=== PATIENT | female | born 1970 | race Two or more races ===

== ENCOUNTER 2025-02-13 21:17 | Emergency (ER) | payer MEDICAID, SELFPAY ==
[2025-02-13 21:19] VITALS: BMI 31.8
[2025-02-13 21:36] VITALS: BP 131/76; PULSE 100; RESP 18; TEMP 37.1; O2SAT 98
--- NOTE | 2025-02-13 22:57 | XR_ITS ---
Examination: PA lateral chest 2 views TECHNIQUE: Upright PA lateral chest 2 views Date and time: February 13, 2025 1109 hours INDICATIONS: Patient fell yesterday with injury to the chest, chest pain FINDINGS: Normal heart size No pneumothorax Clavicles, ribs, thoracic vertebral bodies appear intact. IMPRESSION: No pneumothorax pulmonary contusion or hemothorax
--- NOTE | 2025-02-13 22:57 | EKG_ITS ---
[facility] Test Date: 2025-02-13 Pat Name: JANNA HARRISON Department: Room: - Gender: Female Paunch Trimmer: : 1970 Requested By: Bethany Montana Order Number: [id number] Reading MD: Bethany Montana Measurements Intervals [place] Rate: 108 P: 39 OH: 136 QRS: 51 QRSD: 84 T: 66 QT: 320 QTc: 430 Interpretive Statements SINUS TACHYCARDIA POSSIBLE LEFT ATRIAL ENLARGEMENT [-0.1mV P-WAVE IN V1/V2] ABNORMAL RHYTHM ECG No previous ECG available for comparison /store/S0/[id number]/ecg/[id number].pdf
--- NOTE | 2025-02-13 22:57 | XR_ITS ---
Examination: Shoulder,right, 3 views Technique: Shoulder AP internal rotation, AP external rotation, Y view shoulder, 3 views Exam date and time :February 13, 2025 1107 hours INDICATIONS: Patient fell yesterday with into the shoulder, shoulder pain. FINDINGS: No shoulder fracture or dislocations Small oval bone density adjacent to the acromion No AC joint separation IMPRESSION: No acute shoulder fracture or dislocation
--- NOTE | 2025-02-13 22:57 | XR_ITS ---
Examination: Knee, left , 3 views Technique: Knee AP, lateral, oblique 3 views Date and time of exam: February 13, 2025 1110 hours INDICATIONS: Patient fell yesterday with injury to the knee, knee pain. FINDINGS: No fracture or dislocation. No foreign body IMPRESSION: No fracture or dislocation
[2025-02-13 23:38] LABS: Basophils # (Auto) 0.1 Thou/mm3 (0.0-0.2); Basophils % (Auto) 1 % (0-2.5); Eosinophils # (Auto) 0.4 Thou/mm3 (0.0-0.5); Eosinophils % (Auto) 2 % (0-10); Hematocrit 26.0 % (36.0-46.0); Immature Granulocytes Auto 0.06 Thou/mm3 (0.00-0.00); Lymphocytes # (Auto) 3.3 Thou/mm3 (1.0-4.8); Lymphocytes % (Auto) 22 % (10-50); Mean Corpuscular HGB Conc 25.0 g/dl (31.0-37.0); Mean Corpuscular Hemoglobin 13.9 pg (25.0-35.0); Mean Corpuscular Volume 56 fL (80-100); Monocytes # (Auto) 1.4 Thou/mm3 (0.0-0.8); Monocytes % (Auto) 9 % (0-12); Neutrophils # (Auto) 10.2 Thou/mm3 (1.8-7.7); Neutrophils % (Auto) 66 % (37-80); Nucleated Red Blood Cell # 0.04 Thou/mm3 (0.00-0.00); Nucleated Red Blood Cell % 0 /100 WBC (0); Platelet Count 455 Thou/mm3 (140-440); RDW Standard Deviation 46.8 fL (36.4-46.3); Red Blood Count 4.67 Miln/mm3 (4.00-5.20); White Blood Count 15.5 Thou/mm3 (3.6-11.0)
[2025-02-13 23:52] LABS: Alanine Aminotransferase 8 U/L (10-49); Albumin, Serum 4.7 gm/dL (3.5-5.0); Albumin/Globulin Ratio 1.4 (1.2-2.2); Alkaline Phosphatase 134 U/L (46-116); Anion Gap 8 (7-16); Aspartate Amino Transferase < 10 U/L (0-34); BUN/Creatinine Ratio 18 Ratio (12-20); Bilirubin,Total 0.4 mg/dL (0.3-1.2); Blood Urea Nitrogen 16 mg/dL (9-23); Calcium 9.6 mg/dL (8.3-10.6); Calcium (Corrected) 9.6 mg/dL (8.5-10.1); Carbon Dioxide 25.8 mMol/L (20.0-31.0); Chloride 106 mMol/L (98-107); Creatinine (Component) 0.9 mg/dL (0.6-1.3); Estimated Creatinine Clearance 73.1 mL/min (>60); Globulin 3.3 gm/dL (2.3-3.5); Glucose 149 mg/dL (74-106); Osmolality,Calculated 283 (275-295); Potassium 3.7 mMol/L (3.4-5.1); Sodium 140 mMol/L (136-145); Total Protein 8.0 gm/dL (5.7-8.2); eGFR > 60 See Note
[2025-02-14] VITALS (14 sets, daily range): BP systolic 109–132; BP diastolic 50–86; PULSE 63–100; RESP 16–20; TEMP 36.6–37.1; O2SAT 97–100
[2025-02-14 00:05] LABS: Hemoglobin 6.5 g/dL (12.0-16.0)
[2025-02-14 00:09] LABS: Path Review Blood Smear Sent to Pathologist
[2025-02-14 00:26] LABS: Collection Type, Urine Clean Catch; RBC,Urine 0 /hpf (0-3)
[2025-02-14 00:39] LABS: Amphetamine/Methamp Scrn,U Negative (Negative); Barbiturate Screen,Urine Negative (Negative); Benzodiazepines Screen,Urine Negative (Negative); Benzoylecgonine Screen, Ur Negative (Negative); Fentanyl Screen,Urine Negative (Negative); Opiate Screen,Urine Negative (Negative); THC Screen,Urine Negative (Negative)
[2025-02-14 00:45] LABS: INR 0.9 (0.9-1.3); Partial Thromboplastin Time 23.9 Seconds (22.0-36.0); Prothrombin Time 10.4 Seconds (9.0-12.2)
[2025-02-14 02:45] LABS: HCG Qualitative,Urine Negative
[2025-02-14 02:46] LABS: Amorphous Crystals,Urine Present (Absent); Bilirubin,Urine Negative (Negative); Blood,Urine Negative (Negative); Clarity,Urine Turbid (Clear/Hazy); Color,Urine Orange (Lt Yel-Yel); Culture Indicated,Urine Not Indicated; Glucose, Urine Negative (Negative); Ketones,Urine Negative (Negative); Leukocyte Esterase,Urine Positive (Negative); Nitrite,Urine Negative (Negative); PH,Urine 5.5 (5.0-7.0); Protein,Urine Trace (Neg - Trace); Specific Gravity,Urine 1.034 (1.001-1.035); Squamous Epithelial Cell,Urine 3 /hpf (0-5); Urobilinogen,Urine 2.0 mg/dL (0.0-1.0); WBC,Urine 1 /hpf (0-5)
[2025-02-14] MEDS: ACETAMINOPHEN 325 MG TABLET 650 MG PO (03:57)
--- NOTE | 2025-02-14 05:45 | EDNOTE_ITS ---
<Statement entered by Sugar Ross MD - 02/14/25 17:24> As co-signing physician, I was present and available for consult prn. I concur with the plan and care as documented by the midlevel provider. ED General RME/HPI General Chief complaint: Fall Stated complaint: FALL, CHEST, RIGHT ARM, AND LEFT THUMB PAIN Time Seen by Provider: 02/13/25 21:43 Arrival date/time: 02/13/25 21:17 RME / HPI RME / HPI narrative: 53-year-old female presents to the ED with complaint of injury to her right shoulder, right anterior chest wall and left knee secondary to a syncopal episode she experienced yesterday. She states she was walking and fell forward striking her forehead, right shoulder and chest as well as left knee. She states she has a history of low iron. She has never had an iron infusion but states she has had a blood transfusion previously. She denies any recent illness with fever, chills, cough, upper respiratory complaints. She does states she has heavy menstrual periods where she fully soaks a tampon and maxi pad frequently. She also states all of her sisters have low iron levels as well. Related Data Previous Rx's ?Medication ?Instructions ?Recorded ascorbic acid (vitamin C) 500 mg 500 mg PO QDAY #30 ta bs 02/14/25 tablet,extended release (Vitamin C ER) ferrous sulfate 325 mg (65 mg 325 mg PO TID #30 tabs 0 02/14/25 iron) tablet Allergies Allergy/AdvReac Type Severity Reaction Status Date / Time No Known Allergies Allergy Verified 02/13/25 21:19 Review of Systems Review of Systems Systems Reviewed: All systems reviewed, normal except as documented Past Medical History Past Medical History CARDIAC: Negative Congestive Heart Failure RESPIRATORY: Negative Chronic Obstructive Pulmonary Disease (COPD) GENITOURINARY: Negative Renal Disease ENDOCRINE: Negative Diabetes Mellitus Type 1 or Diabetes Mellitus Type 2 HEMATOLOGIC: Positive Anemia OTHER HISTORY: Positive Blood Transfusions Social History SMOKING STATUS: Current some day smoker ED Exam Narrative Physical exam: A&O, afebrile and non-toxic appearing 54-year-old female, no acute distress. Pupils are PERRL, EOMs intact. Cranial nerves II through XII grossly intact. 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 Lung sounds are clear, RRR, Abdomen is soft, nontender, and non-distended. Right distal clavicle, AC joint and GH joint tenderness with decreased range of motion with inversion, eversion, abduction and adduction of the right arm. Left anterior knee tenderness. No swelling or ecchymosis is noted. CMS intact to all 4 extremities. Moves all other extremities well. Course Course Course Narrative: CBC reveals an elevated white count of 15.5, significantly low hemoglobin of 6.5 and hematocrit of 26.0. MCV is low at 56, MCH is low at 13.9, MCHC is low at 25.0, platelets are elevated at 455. Coagulation studies are normal. Blood bank tests reveal O+ blood with negative antibody screen. CMP reveals normal electrolytes with the exception of an elevated glucose of 149. Renal function is normal. Alk phos is mildly elevated at 134 otherwise normal LFTs. Urinalysis reveals turbid orange urine with a specific gravity of 1.034 with trace protein, 2.0 urobilinogen, urine hCG is negative. Urine drug screen is negative. 2 units of PRBCs was ordered and transfusion is currently in process. Right shoulder x-ray reveals no acute fracture or dislocation. Left knee x-ray reveals no fracture or dislocation. XR chest reveals no acute process. Quality Measures none Orders Category Date Time Status Camp Guard STAT Care 02/14/25 02:26 Active EKG (ED ONLY) *Do not use* NOW Care 02/13/25 22:58 Completed Insert IV STAT Care 02/14/25 02:26 Active Transfuse,blood/blood products ONCE Care 02/14/25 02:26 Active EKG (ED Only) Stat Exams 02/13/25 22:57 Draft XR chest 2V Stat Exams 02/13/25 22:57 Completed XR knee LT 3V Stat Exams 02/13/25 22:57 Completed XR shoulder RT min 2V Stat Exams 02/13/25 22:57 Completed CBC Stat Lab 02/13/25 23:22 Completed CMP [Comprehensive Metabolic Panel] Stat Lab 02/13/25 23:22 Completed Drug Screen,Urine Stat Lab 02/14/25 00:13 Completed HCG Qualitative,Urine Stat Lab 02/14/25 00:13 Completed PT [Prothrombin Time with INR] Stat Lab 02/14/25 00:00 Completed PTT [Partial Thromboplastin Time] Stat Lab 02/14/25 00:00 Completed Path Review Blood Smear Stat Lab 02/13/25 23:22 Completed Type and Screen Stat Lab 02/14/25 00:44 Results Urinalysis, C/S if Indicated Stat Lab 02/14/25 00:13 Completed prbc [Red Blood Cells] Stat Lab 02/14/25 00:44 Results Acetaminophen Tab [Tylenol Tab] Med 02/14/25 02:26 Discontinued 650 mg PO X1 ONE DiphenhydrAMINE [Benadryl] Med 02/14/25 02:26 Discontinued 25 mg PO X1 ONE Vital Signs Vital signs: Vital Signs Temperature 98.7 F 02/13/25 21:36 Pulse Rate 100 02/13/25 21:36 Respiratory Rate 18 02/13/25 21:36 Blood Pressure 131/76 H 02/13/25 21:36 Pulse Oximetry (%) 98 02/13/25 21:36 Oxygen Delivery Method Room Air 02/13/25 21:36 Discharge Plan Plan Patient Disposition: HOME (Self Care) Discharge Disposition comment: Stable and improved Prescriptions/Referrals Prescriptions/Med Rec: New ferrous sulfate 325 mg (65 mg iron) tablet 325 mg PO TID Qty: 30 0RF ascorbic acid (vitamin C) [Vitamin C] 500 mg tablet extended release 500 mg PO QDAY Qty: 30 0RF Referrals: No Primary/Family,Physician [Primary Care Provider] - In 1 week Problem List Clinical Impression: Iron (Fe) deficiency anemia, Reactive thrombocytosis, Transfusion of blood during current hospitalisation, Syncope with normal neurologic examination, Contusion of right shoulder, Contusion of anterior chest wall Patient/Caregiver Discharge Instructions Education Materials: Iron Supplements, ED Anemia, Iron-Deficiency (Adult), ED Chest Wall Contusion, ED Dizziness or Syncope ..., ED Shoulder Contusion Additional Instructions: Take the iron tablets and vitamin C as prescribed. Follow-up with your primary care physician in the next 24 to 48 hours for referral to a ammonia box operator. You will likely need iron infusions. Return to the ER for any new or worsening symptoms. Print Language: Martiniquais Stand Alone Forms: Crystal Award Info., Patient Portal Info Letter PA/FRONT OF HOUSE MANAGER Supervising Physician PA/FRONT OF HOUSE MANAGER Supervising Physician: Dr. Vandana ROBISON Narrative MDM hospital course: Symptoms, exam and diagnostic studies are consistent with: Microcytic, hypochromic severe anemia with a hemoglobin of 6.5 with reactive thrombocytosis, suggestive of iron deficiency anemia. Patient was given 2 units of packed red blood cells. Clinical Information Provided by patient Medical Records Reviewed None Meds/Rx Considered, not Ordered None Describe details: N/A Labs/Rad/Tests considered, not Ordered None Describe details: N/A Chronic Illness/Social Conditions which may negatively complicate care or outcome(s)-explain: None or not applicable Add or document further as needed: N/A EKG EKG Interpretation narrative: EKG reveals sinus tachycardia at 108 with no STEMI noted. Lab Interpretation Labs: interpreted by ks Lab(s) interpretation(s): As noted above Imaging Imaging interpretation: see narrative above Radiology reports / interpretation(s): As noted above Medication Administration(s) Medication Administration History Discontinued Medications Acetaminophen (Acetaminophen 325 Mg Tablet) 650 mg PO X1 ONE Stop: 02/14/25 02:27 Last Admin: 02/14/25 03:57 Dose: 650 mg Documented By: CCT Comments: prior blood transfusion Diphenhydramine HCl (Diphenhydramine 25 Mg Capsule) 25 mg PO X1 ONE Stop: 02/14/25 02:27 Last Admin: 02/14/25 03:57 Dose: 25 mg Documented By: CCT As noted above Diagnosis Differential diagnosis: Syncope, vertigo, cardiac dysrhythmia, anemia Most likely dx, and/or detailed dx discussion: Syncope secondary to severe anemia with hemoglobin of 6.5 Dispositon Disposition: Discharge Home Disposition comments: Patient is stable for discharge
--- NOTE | 2025-02-14 07:15 | PC.NURSE ---
Received report from Etienne GUNTER and assumed care of patient. Patient sleeping in bed with no signs of distress and no complaints at this time.
== END 2025-02-14 10:38 | disposition home or self-care (01) ==
PROVIDERS: Physician Assistant; Emergency Provider Emergency Medicine
DX: D50.9 Iron deficiency anemia, unspecified (principal); S40.011A Contusion of right shoulder, initial encounter; D75.838 Other thrombocytosis; R55 Syncope and collapse; R00.0 Tachycardia, unspecified; S89.92XA Unspecified injury of left lower leg, initial encounter; W18.30XA Fall on same level, unspecified, initial encounter
CPT/HCPCS: 36415; 36430; 71046; 73030; 73562; 80053; 80307; 81001; 81025; 85025; 85610; 85730; 86850; 86900; 86901; 86923; 93005; 99284; P9016; A9270

== ENCOUNTER 2025-06-13 12:31 | Emergency (ER) | payer MEDICAID, SELFPAY ==
[2025-06-13 12:31] VITALS: BMI 37.2
[2025-06-13 12:39] VITALS: BP 150/95; PULSE 102; RESP 18; TEMP 37.1; O2SAT 93
--- NOTE | 2025-06-13 12:45 | EDNOTE_ITS ---
<Statement entered by Sugar Ross MD - 06/13/25 17:15> As co-signing physician, I was present and available for consult prn. I concur with the plan and care as documented by the midlevel provider. ED SOB =RME/HPI General Chief Complaint: Shortness of Breath/Dyspnea Stated Complaint: difficulty breathing Time Seen by Provider: 06/13/25 12:38 Source: patient Arrival date/time: 06/13/25 12:31 54-year-old female with no known medical history presents to the emergency room with a chief complaint of shortness of breath and difficulty breathing x 2 days Mode of arrival: ambulatory Limitations: no limitations Related Data Previous Rx's ?Medication ?Instructions ?Recorded ascorbic acid (vitamin C) 500 mg 500 mg PO QDAY #30 ta bs 02/14/25 tablet,extended release (Vitamin C ER) ferrous sulfate 325 mg (65 mg 325 mg PO TID #30 tabs 0 02/14/25 iron) tablet azithromycin 250 mg tablet See Rx Instructions PO .COM PLEX #6 06/13/25 (Zithromax Z-Alfonso) tabs prednisone 20 mg tablet 40 mg (2 x 20 mg) PO QDAY 4 days 06/13/25 #8 tabs Allergies Allergy/AdvReac Type Severity Reaction Status Date / Time No Known Allergies Allergy Verified 06/13/25 12:33 Review of Systems Review of Systems Systems Reviewed: All systems reviewed, normal except as documented Constitutional Constitutional: Reports system reviewed and no additional complaints, except as documented, Denies fatigue, Denies fever(s), Denies headache(s) and Denies weakness Eyes Eyes: Reports system reviewed and no additional complaints, except as documented, Denies blurry vision and Denies change in vision ENT Ears, Nose, Mouth, and Throat: Reports system reviewed and no additional complaints, except as documented, Denies otalgia, Denies headache(s), Denies nasal congestion, Denies throat swelling and Denies vertigo Cardiovascular Cardiovascular: Reports system reviewed and no additional complaints, except as documented, Denies chest pain, Reports dyspnea and Denies dyspnea on exertion Respiratory Respiratory: Reports system reviewed and no additional complaints, except as documented, Denies chest congestion, Reports cough, Reports dyspnea, Denies dyspnea on exertion and Reports wheezing Gastrointestinal Gastrointestinal: Reports system reviewed and no additional complaints, except as documented, Denies abdominal pain, Denies cramping, Denies nausea and Denies vomiting Genitourinary Genitourinary: Reports system reviewed and no additional complaints, except as documented Musculoskeletal Musculoskeletal: Reports system reviewed and no additional complaints, except as documented and Denies back pain Integumentary/Breasts Skin/Breast: Reports system reviewed and no additional complaints, except as documented and Denies wounds Neurologic Neurologic: Reports system reviewed and no additional complaints, except as documented, Denies confusion, Denies headache(s), Denies lack of coordination, Denies vertigo and Denies weakness Psychiatric Psychiatric: Reports system reviewed and no additional complaints, except as documented, Denies anxiety, Denies confusion, Denies depression, Denies paranoia, Denies suicidal ideation and Denies tactile hallucinations Endocrine Endocrine: Reports system reviewed and no additional complaints, except as documented and Denies fatigue Hematologic/Lymphatic Hematologic/Lymphatic: Reports system reviewed and no additional complaints, except as documented and Denies lymphadenopathy Allergic/Immunologic Allergic/Immunologic: Reports system reviewed and no additional complaints, except as documented, Denies throat swelling, Denies urticaria and Reports wheezing Past Medical History Past Medical History CARDIAC: Negative Congestive Heart Failure RESPIRATORY: Negative Chronic Obstructive Pulmonary Disease (COPD) GENITOURINARY: Negative Renal Disease ENDOCRINE: Negative Diabetes Mellitus Type 1 or Diabetes Mellitus Type 2 HEMATOLOGIC: Positive Anemia OTHER HISTORY: Positive Blood Transfusions Social History SMOKING STATUS: Never smoker ED Exam General Limitations: Present no limitations General appearance: Present alert and in no apparent distress Head Head exam: Present atraumatic Eye Eye exam: Present normal appearance, PERRL and EOMI ENT ENT exam: Present normal exam, normal oropharynx and mucous membranes moist Neck Neck exam: Present normal inspection, full ROM and trachea midline Chest Chest inspection: Present normal inspection and symmetric chest wall rise Respiratory Respiratory exam: Present normal lung sounds bilaterally and wheezes; Absent respiratory distress, stridor, accessory muscle use or prolonged expiratory phase Expanded Respiratory Exam Location: Left: wheezes, Right: wheezes and Upper: wheezes Cardiovascular Cardiovascular exam: Present regular rate, normal rhythm, normal heart sounds, +S1 and +S2; Absent tachycardia Abdominal Exam Abdominal exam: Present soft and normal bowel sounds Extremities Exam Extremities exam: Present normal inspection and full ROM Back Exam Back exam: Present normal inspection and full ROM Neurological Exam Neurological exam: Present alert, oriented X3 and CN II-XII intact Psychiatric Psychiatric exam: Present normal affect and normal mood Skin Skin exam: Present warm, dry, intact and normal color Course Quality Measures none Orders Category Date Time Status XR chest 1V portable Stat Exams 06/13/25 12:45 Completed COVID-19 Antigen (In-House) Stat Lab 06/13/25 13:25 Completed Influenza A & B Rapid Panel Stat Lab 06/13/25 13:25 Completed Albuterol/Ipratr Rt Marii [Duoneb Rt Mairi] Med 06/13/25 12:45 Discontinued 3 ml INH X1 ONE Dexamethasone Inj [Decadron Inj] Med 06/13/25 12:45 Discontinued 10 mg PO X1 ONE Vital Signs Vital signs: Vital Signs Temperature 98.7 F 06/13/25 12:39 Pulse Rate 102 H 06/13/25 12:39 Respiratory Rate 18 06/13/25 12:39 Blood Pressure 150/95 H 06/13/25 12:39 Pulse Oximetry (%) 93 L 06/13/25 12:39 Oxygen Delivery Method Room Air 06/13/25 12:39 Shortness of Breath / Dyspnea MDM Narrative MDM Narrative:: 54-year-old female with no known medical history presents to the emergency room with a chief complaint of shortness of breath and difficulty breathing x 2 days Patient is hemodynamically stable and in no apparent distress Physical examination shows bilateral upper lobe wheezing. Patient has a history of asthma. Patient was given a breathing treatment and steroids with significant improvement to her symptoms Chest x-ray shows bronchitis Patient was discharged and educated to follow-up with primary care provider in the next 24 to 48 hours and return to the emergency room for any evidence of worsening signs or symptoms Patient data External records reviewed:: [facility] previous records Clinical information provided by:: patient Social determinants that could affect healthcare access:: none Patient has the following chronic illnesses:: No chronic illness How is presenting disease/condition affected by chronic disease/condition?: no chronic disease Evaluation data The following diagnostics were reviewed and interpreted by me:: lab results and radiology exam(s) Lab and/or radiology exams considered but not ordered:: Labs and radiology exams considered in order Interpretation Summary: Chest [id number]: Normal heart size No pneumonia or pulmonary edema Mild accentuation of bronchovascular markings at the lung bases IMPRESSION: Basilar bronchitis pattern Medications / Prescriptions Medications or Prescriptions considered but not ordered:: Medication given Medication administrations:: Medication Administration History Discontinued Medications Albuterol/Ipratropium (Albuterol/Ipratropium (Duoneb) Rt Marii 3 Ml Nebu) 3 ml INH X1 ONE Stop: 06/13/25 12:46 Last Admin: 06/13/25 13:13 Dose: 3 ml Documented By: FELISA Dexamethasone Sodium Phosphate (Dexamethasone Sod Phos Inj 10 Mg/Ml Vial) 10 mg PO X1 ONE Stop: 06/13/25 12:46 Last Admin: 06/13/25 12:57 Dose: 10 mg Documented By: MF Medication given Consultations Consultation(s) initiated? (list below): No Diagnosis Shortness of Breath Differential Diagnosis: congestive heart failure, community acquired pneumonia, asthma with exacerbation and other (Bronchitis) Most likely diagnosis given after review of the tests above:: Bronchitis Admission Indicated Admission indicated?: not indicated Admission Request Was there a request for admission?: No Disposition Plan Disposition Plan: Discharge Discharge Attestation Discharge Attestation: The patient and all family members were given an opportunity to ask questions and understood the discharge instructions. Discharge instructions specifically effects, indications for sooner follow up or return to the emergency department, and the expected course of current diagnosis. Patient condition: Stable Discharge Plan Plan Patient Disposition: HOME (Self Care) Discharge Disposition comment: Stable Prescriptions/Referrals Prescriptions/Med Rec: New azithromycin [Zithromax Z-Alfonso] 250 mg tablet See Rx Instructions .ROUTE .COMPLEX Qty: 6 0RF Rx Instructions: For 250 mg dose pack: take 500 mg today (day 1), then 250 mg for 4 days (days 2-5) prednisone 20 mg tablet 40 mg PO QDAY 4 Days Qty: 8 0RF No Action ferrous sulfate 325 mg (65 mg iron) tablet 325 mg PO TID Qty: 30 0RF ascorbic acid (vitamin C) [Vitamin C] 500 mg tablet extended release 500 mg PO QDAY Qty: 30 0RF Problem List Clinical Impression: Upper respiratory infection, viral Patient/Caregiver Discharge Instructions Education Materials: ED URI, Viral, No Abx (Adult) Additional Instructions: Please follow-up with your primary care provider in the next 24 to 48 hours. You tested negative for influenza, COVID-19. Your chest x-ray was negative for pneumonia. Your most likely source is an upper viral respiratory infection. The treatment for this is symptom management. Please continue to take Tylenol and ibuprofen for fever management. Please increase your oral fluid intake. For any evidence of worsening signs or symptoms please return to the emergency room immediately Print Language: Welsh Stand Alone Forms: Crystal Award Info., Work/School Release, Patient Portal Info Letter PA/CUSTOM LEATHER PRODUCTS MAKER Supervising Physician PA/CUSTOM LEATHER PRODUCTS MAKER Supervising Physician: Dr. Yeager
--- NOTE | 2025-06-13 12:45 | XR_ITS ---
EXAMINATION: PA chest single view TECHNIQUE: Upright PA chest single view Date and time: June 13, 2025, 1335 hours, comparison February 13, 2025 INDICATIONS: Difficulty breathing beginning 4 days ago. FINDINGS: Normal heart size No pneumonia or pulmonary edema Mild accentuation of bronchovascular markings at the lung bases IMPRESSION: Basilar bronchitis pattern
[2025-06-13] MEDS: DEXAMETHASONE SOD PHOS INJ 10 MG/ML VIAL PO (12:57)
[2025-06-13] MEDS: ALBUTEROL/IPRATROPIUM (Duoneb) RT SOL 3 ML NEBU INH (13:13)
[2025-06-13 13:15] VITALS: PULSE 83; RESP 18; O2SAT 100
[2025-06-13 14:20] LABS: COVID-19 Antigen (In-House) Negative (Negative); Influenza A Ag Negative; Influenza B Ag Negative
== END 2025-06-13 14:45 | disposition home or self-care (01) ==
LOC: SERX 15:04
PROVIDERS: Emergency Provider Nurse Practitioner Family; PCP Nurse Practitioner Family
DX: J06.9 Acute upper respiratory infection, unspecified (principal)
CPT/HCPCS: 71045; 87502; 87811; 94640; 99283; A9270; J1100

== ENCOUNTER 2025-07-11 07:38 | Emergency (ER) | payer MEDICAID, SELFPAY ==
[2025-07-11 07:50] VITALS: BP 123/70; PULSE 102; RESP 19; TEMP 36.8; O2SAT 94; BMI 38.9
--- NOTE | 2025-07-11 07:56 | XR_ITS ---
EXAMINATION: AP chest single view TECHNIQUE: AP portable upright chest single view Date and time: July 11, 2025, 0814 hours, comparison June 13, 2025 INDICATIONS: Difficulty breathing beginning 4 days ago. FINDINGS: Suspicious for early right basilar pneumonia Normal heart size No pulmonary edema Moderate osteopenia IMPRESSION: Suspicious for early right base pneumonia
[2025-07-11] MEDS: ALBUTEROL/IPRATROPIUM (Duoneb) RT SOL 3 ML NEBU INH (08:18)
[2025-07-11 08:19] VITALS: PULSE 110; RESP 20; O2SAT 99
--- NOTE | 2025-07-11 09:13 | EDNOTE_ITS ---
ED SOB =RME/HPI General Chief Complaint: Shortness of Breath/Dyspnea Stated Complaint: DIFFICULTY BREATHING X 4 DAYS Time Seen by Provider: 07/11/25 07:48 Source: patient Arrival date/time: 07/11/25 07:38 54-year-old female with a history of asthma presents to the emergency room with a chief complaint of shortness of breath x 4 days Mode of arrival: ambulatory Limitations: no limitations Related Data Previous Rx's ?Medication ?Instructions ?Recorded ascorbic acid (vitamin C) 500 mg 500 mg PO QDAY #30 ta bs 02/14/25 tablet,extended release (Vitamin C ER) ferrous sulfate 325 mg (65 mg 325 mg PO TID #30 tabs 0 02/14/25 iron) tablet azithromycin 250 mg tablet See Rx Instructions PO .COM PLEX #6 06/13/25 (Zithromax Z-Alfonso) tabs albuterol sulfate 90 mcg/actuation 2 puff inhalation Q 6H PRN 07/11/25 aerosol inhaler (Ventolin HFA) shortness of breath or wheezing #6.7 grams amoxicillin 875 mg-potassium 1 tab PO BID 7 days #14 t abs 07/11/25 clavulanate 125 mg tablet Allergies Allergy/AdvReac Type Severity Reaction Status Date / Time No Known Allergies Allergy Verified 07/11/25 07:40 Review of Systems Review of Systems Systems Reviewed: All systems reviewed, normal except as documented Constitutional Constitutional: Reports system reviewed and no additional complaints, except as documented, Denies fatigue, Denies fever(s), Denies headache(s) and Denies weakness Eyes Eyes: Reports system reviewed and no additional complaints, except as documented, Denies blurry vision and Denies change in vision ENT Ears, Nose, Mouth, and Throat: Reports system reviewed and no additional complaints, except as documented, Denies otalgia, Denies headache(s), Denies nasal congestion, Denies throat swelling and Denies vertigo Cardiovascular Cardiovascular: Reports system reviewed and no additional complaints, except as documented, Denies chest pain, Reports dyspnea and Denies dyspnea on exertion Respiratory Respiratory: Reports system reviewed and no additional complaints, except as documented, Denies chest congestion, Reports cough, Reports dyspnea, Denies dyspnea on exertion, Reports excessive phlegm production and Reports wheezing Gastrointestinal Gastrointestinal: Reports system reviewed and no additional complaints, except as documented, Denies abdominal pain, Denies cramping, Denies nausea and Denies vomiting Genitourinary Genitourinary: Reports system reviewed and no additional complaints, except as documented Musculoskeletal Musculoskeletal: Reports system reviewed and no additional complaints, except as documented and Denies back pain Integumentary/Breasts Skin/Breast: Reports system reviewed and no additional complaints, except as documented and Denies wounds Neurologic Neurologic: Reports system reviewed and no additional complaints, except as documented, Denies confusion, Denies headache(s), Denies lack of coordination, Denies vertigo and Denies weakness Psychiatric Psychiatric: Reports system reviewed and no additional complaints, except as documented, Denies anxiety, Denies confusion, Denies depression, Denies paranoia, Denies suicidal ideation and Denies tactile hallucinations Endocrine Endocrine: Reports system reviewed and no additional complaints, except as documented and Denies fatigue Hematologic/Lymphatic Hematologic/Lymphatic: Reports system reviewed and no additional complaints, except as documented and Denies lymphadenopathy Allergic/Immunologic Allergic/Immunologic: Reports system reviewed and no additional complaints, except as documented, Denies throat swelling, Denies urticaria and Reports wheezing Past Medical History Past Medical History CARDIAC: Negative Congestive Heart Failure RESPIRATORY: Negative Chronic Obstructive Pulmonary Disease (COPD) GENITOURINARY: Negative Renal Disease ENDOCRINE: Negative Diabetes Mellitus Type 1 or Diabetes Mellitus Type 2 HEMATOLOGIC: Positive Anemia OTHER HISTORY: Positive Blood Transfusions Social History SMOKING STATUS: Never smoker ED Exam General Limitations: Present no limitations General appearance: Present alert and in no apparent distress Head Head exam: Present atraumatic Eye Eye exam: Present normal appearance, PERRL and EOMI ENT ENT exam: Present normal exam, normal oropharynx and mucous membranes moist Neck Neck exam: Present normal inspection, full ROM and trachea midline Chest Chest inspection: Present normal inspection and symmetric chest wall rise Respiratory Respiratory exam: Present normal lung sounds bilaterally and wheezes; Absent respiratory distress, accessory muscle use or prolonged expiratory phase Expanded Respiratory Exam Location: Left: wheezes, Right: wheezes and Upper: wheezes Cardiovascular Cardiovascular exam: Present regular rate, normal rhythm and normal heart sounds Abdominal Exam Abdominal exam: Present soft and normal bowel sounds Extremities Exam Extremities exam: Present normal inspection and full ROM Back Exam Back exam: Present normal inspection and full ROM Neurological Exam Neurological exam: Present alert, oriented X3 and CN II-XII intact Psychiatric Psychiatric exam: Present normal affect and normal mood Skin Skin exam: Present warm, dry, intact and normal color Course Quality Measures none Orders Category Date Time Status Bedside COVID-19 Antigen Test NOW Care 07/11/25 07:56 Active Bedside Influenza A&B Antigen Test NOW Care 07/11/25 07:56 Completed XR chest 1V portable Stat Exams 07/11/25 07:56 Completed Albuterol/Ipratr Rt Marii [Duoneb Rt Marii] Med 07/11/25 07:56 Discontinued 3 ml INH X1 ONE dexAMETHasone INJ [Decadron Inj] Med 07/11/25 07:56 Discontinued 10 mg PO X1 ONE Vital Signs Vital signs: Vital Signs Temperature 98.2 F 07/11/25 07:50 Pulse Rate 102 H 07/11/25 07:50 Respiratory Rate 19 07/11/25 07:50 Blood Pressure 123/70 07/11/25 07:50 Pulse Oximetry (%) 94 L 07/11/25 07:50 Oxygen Delivery Method Room Air 07/11/25 07:50 Shortness of Breath / Dyspnea MDM Narrative MDM Narrative:: 54-year-old female with a history of asthma presents to the emergency room with a chief complaint of shortness of breath x 4 days Patient is hemodynamically stable and in no apparent distress. Patient is afebrile not tachypneic mildly tachycardic and O2 saturation is 94% on room air Physical examination shows bilateral upper lobe wheezing. The patient was given steroids and a breathing treatment with significant improvement of his symptoms A chest x-ray was completed and shows early pneumonia in the right base Antibiotics are sent to the patient's pharmacy Patient was discharged and educated to follow-up with primary care provider in the next 24 to 48 hours and return to the emergency room for any evidence of worsening signs or symptoms Patient data External records reviewed:: [facility] previous records Clinical information provided by:: patient Social determinants that could affect healthcare access:: none Patient has the following chronic illnesses:: Asthma How is presenting disease/condition affected by chronic disease/condition?: exacerbated by Evaluation data The following diagnostics were reviewed and interpreted by me:: lab results and radiology exam(s) Lab and/or radiology exams considered but not ordered:: Labs and radiology exams considered and ordered Interpretation Summary: Chest [id number]: Suspicious for early right basilar pneumonia Normal heart size No pulmonary edema Moderate osteopenia IMPRESSION: Suspicious for early right base pneumonia Medications / Prescriptions Medications or Prescriptions considered but not ordered:: Medication given Medication administrations:: Medication Administration History Discontinued Medications Albuterol/Ipratropium (Albuterol/Ipratropium (Duoneb) Rt Marii 3 Ml Nebu) 3 ml IN H X1 ONE Stop: 07/11/25 07:57 Last Admin: 07/11/25 08:18 Dose: 3 ml Documented By: KATIE Dexamethasone Sodium Phosphate (Dexamethasone Sod Phos Inj 10 Mg/Ml Vial) 10 mg PO X1 ONE Stop: 07/11/25 07:57 Last Admin: 07/11/25 08:04 Dose: 10 mg Documented By: EVERTON Medication given Consultations Consultation(s) initiated? (list below): No Diagnosis Shortness of Breath Differential Diagnosis: acute exacerbation of chronic obstructive airways disease, community acquired pneumonia and asthma with exacerbation Most likely diagnosis given after review of the tests above:: Community-acquired pneumonia Admission Indicated Admission indicated?: not indicated Admission Request Was there a request for admission?: No Disposition Plan Disposition Plan: Discharge Discharge Attestation Discharge Attestation: The patient and all family members were given an opportunity to ask questions and understood the discharge instructions. Discharge instructions specifically effects, indications for sooner follow up or return to the emergency department, and the expected course of current diagnosis. Patient condition: Stable Discharge Plan Plan Patient Disposition: HOME (Self Care) Discharge Disposition comment: Stable Prescriptions/Referrals Prescriptions/Med Rec: New albuterol sulfate [Ventolin HFA] 90 mcg/actuation HFA aerosol inhaler 2 puff inhalation Q6H PRN (Reason: shortness of breath or wheezing) Qty: 6.7 0RF amoxicillin-pot clavulanate 875-125 mg tablet 1 tab PO BID 7 Days Qty: 14 0RF No Action azithromycin [Zithromax Z-Alfonso] 250 mg tablet See Rx Instructions .ROUTE .COMPLEX Qty: 6 0RF Rx Instructions: For 250 mg dose pack: take 500 mg today (day 1), then 250 mg for 4 days (days 2-5) ferrous sulfate 325 mg (65 mg iron) tablet 325 mg PO TID Qty: 30 0RF ascorbic acid (vitamin C) [Vitamin C] 500 mg tablet extended release 500 mg PO QDAY Qty: 30 0RF Referrals: Raphael Doss MD [Primary Care Provider, Neurology] - In 1 week Problem List Clinical Impression: Community acquired pneumonia Patient/Caregiver Discharge Instructions Education Materials: Chest and Lung Problems, ED Pneumonia (Adult) Additional Instructions: Please follow-up with your primary care provider in the next 24 to 48 hours Chest x-ray was completed and shows community-acquired pneumonia in the right lung base Antibiotics are sent to your pharmacy please pick them up and take them as indicated For any evidence of worsening signs or symptoms return to the emergency room immediately Print Language: Ukrainian Stand Alone Forms: Crystal Award Info., Work/School Release, Patient Portal Info Letter
== END 2025-07-11 09:22 | disposition home or self-care (01) ==
PROVIDERS: Emergency Provider Nurse Practitioner Family; PCP Psychiatry & Neurology Neurology
DX: J18.9 Pneumonia, unspecified organism (principal)
CPT/HCPCS: 71045; 87502; 87635; 94640; 99283; A9270; J1100